=== PATIENT | female | born 1950 | race African-American/Black ===

== ENCOUNTER 2019-10-18 08:59 | Observation (INO) | payer MEDICARE ==
[2019-10-16 12:26] LABS: BASOPHILS % 0.6 % (0.0-1.0); EOSINOPHILS # (AUTO) 0.2 (0.0-0.4); EOSINOPHILS % 3.1 % (0.0-6.0); HEMATOCRIT 33.3 % (34.2-44.1); HEMOGLOBIN 11.1 g/dL (12.0-16.0); LYMPHOCYTES # (AUTO) 1.8 (1.0-3.2); MEAN CORPUSCULAR HEMOGLOBIN 30.8 pg (28-32); MEAN CORPUSCULAR HGB CONC 33.3 g/dL (31-35); MEAN CORPUSCULAR VOLUME 92.5 fL (81-99); MONOCYTES # (AUTO) 0.5 (0.2-0.8); MONOCYTES % 6.4 % (4.4-11.3); NEUTROPHILS # (AUTO) 4.5 (2.1-6.9); NEUTROPHILS % 64.3 % (38.7-80.0); PLATELET COUNT 259 x10e3/uL (140-360); RED CELL DISTRIBUTION WIDTH 12.8 % (11.7-14.4)
[2019-10-16 12:56] LABS: ALANINE AMINOTRANSFERASE 8 IU/L (0-55); ALBUMIN 3.2 g/dL (3.5-5.0); ALKALINE PHOSPHATASE 63 IU/L (40-150); ANION GAP 13.6 mmol/L (8-16); BLOOD UREA NITROGEN 14 mg/dL (7-26); BUN/CREATININE RATIO 15 (6-25); CALCIUM 9.1 mg/dL (8.4-10.2); CARBON DIOXIDE 30 mmol/L (22-29); CHLORIDE 101 mmol/L (98-107); CREATININE, SERUM 0.94 mg/dL (0.57-1.11); EST GLOMERULAR FILTRATION RATE > 60 ML/MIN (60-); GLUCOSE 104 mg/dL (74-118); POTASSIUM 3.6 mmol/L (3.5-5.1); SODIUM 141 mmol/L (136-145)
--- NOTE | 2019-10-16 13:43 | Diagnostic Imaging Report ---
EXAMINATION: CHEST 2 VIEWS INDICATION: ^PREOP ^[id number] ^1312 COMPARISON: None FINDINGS: PA and lateral views TUBES and LINES: None. LUNGS: Lungs are well inflated. Lungs are clear. There is no evidence of pneumonia or pulmonary edema. PLEURA: No pleural effusion or pneumothorax. HEART AND MEDIASTINUM: The cardiomediastinal silhouette is unremarkable. BONES AND SOFT TISSUES: No acute osseous lesion. Soft tissues are unremarkable. UPPER ABDOMEN: No free air under the diaphragm. IMPRESSION: No acute thoracic radiographic abnormality. Signed by: Seven Florez MD on 10/16/2019 1:40 PM
[~2019-10-18] VITALS: Ht 157.5 cm; Wt 93.9 kg
[~2019-10-18 08:59] MED LIST: ALENDRONATE SOD70 MG PO; FERROUS SULFAT324 MG PO; KLOR-CON 1010 MEQ PO; LISINOPRIL-HCT1 EAC2 PO; METOPROLOL SUCC50 MG PO; PANTOPRAZOLE SO40 MG PO; ULORIC40 MG PO
--- OUTSIDE RECORDS SUMMARY | 2019-10-18 09:01 | XMS REPORT ---
Author Author [facility] Address Unknown Phone Unavailable Care Team Providers Care Debridging Machine Operator Name Role Phone DWAYNE CRUM Unavailable Unavailable Problems This patient has no known problems. Allergies, Adverse Reactions, Alerts This patient has no known allergies or adverse reactions. Medications This patient has no known medications. Results Test Description Test Time Test Comments Text Results Atomic Results Result Comments CHEST 2 VIEWS 2019-10-16 13:40:00 [facility] [address] [place] [address] Patient Name: RADHA CLEVELAND MR #: [id number] : 1950 Age/Sex: 69/F Req #: [id number] Adm Physician: Ordered by: DWAYNE CRUM MD Report #: [id number] Location: OR Room/Bed: Procedure: [id number] DX/CHEST 2 VIEWS Exam Date: 10/16/19 Exam Time: 131 REPORT STATUS: Signed EXAMINATION: CHEST 2 VIEWS INDICATION: PRE OP [id number] COMPARISON: None FINDINGS: PA and lateral views TUBES and LINES: None. LUNGS: Lungs are well inflated. Lungs are clear. There is no evidence of pneumonia or pulmonary edema. PLEURA: No pleural effusion or pneumothorax. HEART AND MEDIASTINUM: The cardiomediastinal silhouette is unremarkable. BONES AND SOFT TISSUES: No acute osseous lesion. Soft tissues are unremarkable. UPPER ABDOMEN: No free air under the diaphragm. IMPRESSION: No acute thoracic radiographic abnormality. Signed by: Veronica Flowers MD on 10/16/2019 1:40 PM Dictated By: VERONICA FLOWERS MD 1340 Transcribed By: SOLA on 10/16/19 1340 COPY TO: DWAYNE CRUM MD
[2019-10-18] MEDS ORDERED: LEVOFLOXACIN 250MG/D5W 50ML 50 ML ONE (09:17)
[2019-10-18] MEDS ORDERED: B&O 60MG R/S 60 MG SUPP PR ONE (09:26)
[2019-10-18] MEDS ORDERED: IOPAMIDOL 300MG/ML 50ML INFUS..BTL IV ONE (09:26)
[2019-10-18 12:17] LABS: BASOPHILS % 0.5 % (0.0-1.0); EOSINOPHILS # (AUTO) 0.2 (0.0-0.4); EOSINOPHILS % 2.5 % (0.0-6.0); HEMATOCRIT 33.9 % (34.2-44.1); HEMOGLOBIN 11.2 g/dL (12.0-16.0); LYMPHOCYTES # (AUTO) 1.7 (1.0-3.2); LYMPHOCYTES % 26.4 % (18.0-39.1); MEAN CORPUSCULAR HEMOGLOBIN 30.5 pg (28-32); MEAN CORPUSCULAR VOLUME 92.4 fL (81-99); MONOCYTES # (AUTO) 0.4 (0.2-0.8); MONOCYTES % 5.6 % (4.4-11.3); NEUTROPHILS # (AUTO) 4.1 (2.1-6.9); NEUTROPHILS % 64.7 % (38.7-80.0); PLATELET COUNT 208 x10e3/uL (140-360); RED BLOOD COUNT 3.67 x10e6/uL (3.6-5.1); RED CELL DISTRIBUTION WIDTH 12.8 % (11.7-14.4)
[2019-10-18 12:34] LABS: ANION GAP 14.3 mmol/L (8-16); BLOOD UREA NITROGEN 10 mg/dL (7-26); BUN/CREATININE RATIO 12 (6-25); CALCIUM 8.9 mg/dL (8.4-10.2); CARBON DIOXIDE 29 mmol/L (22-29); CHLORIDE 101 mmol/L (98-107); CREATININE, SERUM 0.86 mg/dL (0.57-1.11); EST GLOMERULAR FILTRATION RATE > 60 ML/MIN (60-); GLUCOSE 104 mg/dL (74-118); POTASSIUM 3.3 mmol/L (3.5-5.1); SODIUM 141 mmol/L (136-145)
[2019-10-18 12:54] VITALS: BP 132/61
[2019-10-18] MEDS ORDERED: SODIUM CHLORIDE 0.9% 1000ML 1,000 ML IV SCH (13:00)
--- NOTE | 2019-10-18 13:00 | NUR ---
PT RECEIVED FROM PACU. AAOX4. PT IS WAITING FOR CARDIAC CLEARANCE PER THE TRANSFER REPORT. LEVAQUIN ONE TIME DOSE GIVEN AT PACU PER THE RN. PAGED DR. WYNNE AND DR. Desi OLIVERA REGARDING PT ARRIVAL TO THE UNIT. EDUCATED PT ABOUT FALL PRECAUTIONS. CALL LIGHT WITH IN EASY REACH. INSTRUCTED PT TO USE CALL LIGHT FOR ALL THE NEEDS. PT VERBALIZED UNDERSTANDING. BED IS LOW AND LOCKED. SIDE RAILS X2. BED ALARM IS ON. PT DENIES NEEDS AT THIS TIME.
--- NOTE | 2019-10-18 13:45 | NUR ---
PAGED DR. CRUM REGARDING PT NPO STATUS. WAITING FOR THE RESPONSE FORM THE
[2019-10-18 14:00] VITALS: BP 132/61
--- NOTE | 2019-10-18 14:47 | NUR ---
CARDIAC DIET , NO PROCEDURE TODAY PER DR. CRUM.
[2019-10-18 15:16] VITALS: BP 146/69
--- NOTE | 2019-10-18 17:00 | NUR ---
WALKING ROUNDS MADE. PER THE PT, HER DAUGHTER WILL MECHANICAL EQUIPMENT SALES ENGINEER THE PT ONLY AFTER 7 PM. BUSINESS DEVELOPMENT AWARE.
--- NOTE | 2019-10-18 17:30 | NUR ---
PT PULLED OUT THE IV BY HERSELF. PT IS NON COMPLIANT WITH FALL PRECAUTIONS. DENIES NEEDS AT THIS TIME
--- NOTE | 2019-10-18 17:31 | NUR ---
PT PULLED OUT THE IV. TIP INTACT. DRESSING APPLIED. PT DENIED FURTHER NEEDS.
--- NOTE | 2019-10-18 18:00 | NUR ---
WALKING ROUNDS MADE. PT IS WAITING FOR THE DAUGHTER TO PICK HER. DENIES NEEDS AT THIS TIME.
--- NOTE | 2019-10-18 19:00 | NUR ---
BEDSIDE SHIFT REPORT GIVEN TO THE GRADES 7 AND 8 VISITING TEACHER RN. PT DENIED FURTHER NEEDS.
--- NOTE | 2019-10-18 22:31 | Consultation ---
DATE OF CONSULTATION: 10/18/2019 Cardiology Consult HISTORY OF PRESENT ILLNESS: Janel De Los Santos is a 69-year-old female with primary history of kidney cancer and post left partial nephrectomy in 2010, history of hypertension, hyperlipidemia, CAD and HI in 2013, only medical management was done, gout arthritis, also history of intermittent urinary tract infection, admitted complaining of hematuria that has been going on and off or intermittently since she had urinary tract infection sometime last year. The patient is now admitted for possible cystoscopy. PAST MEDICAL HISTORY: Hypertension, hypercholesterolemia, hyperlipidemia, HI in 2013, CAD, gout, GERD, obesity, anemia, COPD, kidney cancer, post partial left nephrectomy in 2010. SURGICAL HISTORY: Cholecystectomy, hysterectomy. FAMILY HISTORY: No history of bladder or kidney problems in the family. SOCIAL HISTORY: No alcohol or drug use. CURRENT MEDICATIONS: She is takin. Hydrochlorothiazide. 2. Lisinopril. 3. Metoprolol. 4. Pantoprazole. 5. Klor-Con or potassium chloride. 6. Ferrous sulfate. 7. Febuxostat. 8. Alendronic acid. PHYSICAL EXAMINATION: VITAL SIGNS: Includes temperature 98.0, pulse of 76, respirations 18, blood pressure is 132/61, pulse oximetry is 99% on 2 L nasal cannula. GENERAL: The patient is well-developed, well-nourished, no acute respiratory distress. SKIN: Normal in appearance, texture, and temperature is warm and dry. HEENT: The patient cranium is normocephalic and atraumatic. Her pupils are equally round and reactive to light and accommodation. NECK: Supple. Full range of motion. No cervical lymphadenopathy. No thyromegaly. RESPIRATORY: Normal respiratory effort. LUNGS: Clear to auscultation bilaterally. CARDIOVASCULAR: S1 and S2 audible. Regular rate and rhythm. GI: Soft, nondistended, nontender. Bowel sounds are present. EXTREMITIES: No cyanosis, no clubbing, no edema. NEUROLOGIC: Motor and sensory examination of the upper and lower extremities are normal. Reflexes are normal and symmetrical bilaterally. ASSESSMENT AND PLAN: The patient is a 69-year-old female, admitted for hematuria. The patient's EKG, chest x-ray, and hemodynamics were reviewed. The patient is stable with no chest pain or no dyspnea. EKGs unremarkable. The patient is cleared for surgery or cystoscopy, procedure from cardiac standpoint. Thank you for this consultation. Dictated by Larissa Aguirre, POT PUSHER MD RENU Cm/HIMANSHU /[id number]
--- NOTE | 2019-10-18 23:06 | History and Physical ---
CHIEF COMPLAINT: Chronic atypical chest pain. HISTORY OF PRESENT ILLNESS: The patient is a 69-year-old female with off and on epigastric pain, chest pain area. Apparently, she was supposed to have a cystoscopy for hematuria today and while she was evaluated by the anesthesiologist, she was stating that she was having some chest pain with nonspecific EKG changes. The patient stating that chest pain is off and on, very nonspecific. She has seen her almond blancher operator previously, but did not get an official cardiac clearance. The patient's cystoscopy procedure is stopped and the patient placed on observation for evaluation. The patient did not want any procedures or cardiac clearance in the hospital at this time. She rather go home and see her almond blancher operator or a referral from her PCP for seeing almond blancher operator as an outpatient. Today is Monday and she does not want to wait for workup on Monday. The patient is otherwise stable. She did not have any chest pain now. No abdominal pain. No diarrhea or constipation. No shortness of breath. No headaches. No nausea or vomiting. PAST MEDICAL HISTORY: 1. Left renal partial nephrectomy, secondary to renal-cell carcinoma. 2. Hematuria. 3. Hypertension. 4. Dyslipidemia. 5. Osteoporosis. 6. Gout. 7. Reflux history. PAST SURGICAL HISTORY: As above. SOCIAL HISTORY: The patient does not smoke or use alcohol. No regular drugs. ALLERGIES: AMOXICILLIN, CLAVULANIC ACID, CODEINE, IBUPROFEN, NAPROXEN, AND PROMETHAZINE. HOME MEDICATIONS: Alendronate, Uloric, ferrous sulfate, lisinopril, HCTZ, metoprolol succinate, Protonix, and potassium. PHYSICAL EXAMINATION: VITAL SIGNS: Temperature is 97, blood pressure 146/69, pulse rate is 85, and respirations 18. GENERAL: The patient is not in acute distress. HEENT: Normocephalic and atraumatic. Sclerae anicteric. NECK: Supple grossly. PULMONARY: Clear. CARDIOVASCULAR: Regular rate and rhythm. ABDOMEN: Soft, obese. EXTREMITIES: No cyanosis or edema. NEUROLOGIC: No gross focal deficit. LABORATORY DATA: Sodium is 141, potassium 3.6, chloride 101, bicarb 30. BUN 14, creatinine 0.9, glucose 104. Liver enzyme unremarkable. WBC was 7, hemoglobin 11, hematocrit 33, platelets 259. Chest x-ray otherwise unremarkable. IMPRESSION: Atypical chest discomfort/epigastric pain, could be multifactorial. Since the patient has an elective cystoscopy at this time, the procedure was canceled by anesthesiologist. Discussed with the patient at length. The patient would rather go home and have a referral to her almond blancher operator for cardiac workup and clearance for her procedures. Discussed with the patient that once she had her cardiac clearance, the patient should follow up with Dr. Kenton Vega for a procedure as planned. The patient is otherwise stable. Resume home medication and discharge home today. MD MANUEL Walker/VERONICAL /[id number]
--- NOTE | 2019-10-19 04:42 | Discharge Summary ---
Please review my history and physical where I dictated a plan on this patient care. The patient will go home today. Resume home medication. Follow up with PCP or referred percussion welding machine operator either Dr. Trujillo or Dr. Jose De Jesus Oquendo for outpatient cardiac clearance prior to cystoscopy for hematuria. The patient is otherwise stable, discharged home today. Resume home medication. MD MANUEL Walker/HIMANSHU /[id number]
== END 2019-10-18 21:36 | disposition home or self-care (01) ==
LOC: OR 08:59 → PACU V 10:39 → INTOOBSV 10:39 → MED/SURG2 12:34
PROVIDERS: ADMIT Internal Medicine; ATTEND Internal Medicine
DX: R31.9 Hematuria, unspecified (principal); I10 Essential (primary) hypertension; M81.0 Age-related osteoporosis without current pathological fracture; M10.9 Gout, unspecified; Z85.53 Personal history of malignant neoplasm of renal pelvis; M19.90 Unspecified osteoarthritis, unspecified site; E78.5 Hyperlipidemia, unspecified; J44.9 Chronic obstructive pulmonary disease, unspecified; Z90.5 Acquired absence of kidney; I25.10 Atherosclerotic heart disease of native coronary artery without angina pectoris; I25.2 Old myocardial infarction; E66.9 Obesity, unspecified; Z68.37 Body mass index [BMI] 37.0-37.9, adult; N28.1 Cyst of kidney, acquired
CPT/HCPCS: 36415 ×2; 71046; 80048; 80053; 82948; 85025 ×2; 93005; G0378; J1956; J7030

== ENCOUNTER → 2020-07-17 | Day surgery (SDC) | payer MEDICARE ==
[2020-07-14 12:14] LABS: BASOPHILS % 0.5 % (0.0-1.0); EOSINOPHILS # (AUTO) 0.2 (0.0-0.4); EOSINOPHILS % 3.7 % (0.0-6.0); HEMATOCRIT 38.5 % (34.2-44.1); HEMOGLOBIN 12.4 g/dL (12.0-16.0); LYMPHOCYTES # (AUTO) 1.7 (1.0-3.2); LYMPHOCYTES % 27.9 % (18.0-39.1); MEAN CORPUSCULAR HEMOGLOBIN 29.4 pg (28-32); MEAN CORPUSCULAR HGB CONC 32.2 g/dL (31-35); MEAN CORPUSCULAR VOLUME 91.2 fL (81-99); MONOCYTES # (AUTO) 0.3 (0.2-0.8); MONOCYTES % 5.4 % (4.4-11.3); NEUTROPHILS # (AUTO) 3.7 (2.1-6.9); NEUTROPHILS % 62.2 % (38.7-80.0); PLATELET COUNT 211 x10e3/uL (140-360); RED BLOOD COUNT 4.22 x10e6/uL (3.6-5.1); RED CELL DISTRIBUTION WIDTH 13.2 % (11.7-14.4)
[2020-07-14 13:00] LABS: ANION GAP 13.3 mmol/L (8-16); BLOOD UREA NITROGEN 15 mg/dL (7-26); BUN/CREATININE RATIO 16 (6-25); CALCIUM 9.3 mg/dL (8.4-10.2); CARBON DIOXIDE 27 mmol/L (22-29); CHLORIDE 102 mmol/L (98-107); CREATININE, SERUM 0.94 mg/dL (0.57-1.11); EST GLOMERULAR FILTRATION RATE > 60 ML/MIN (60-); GLUCOSE 89 mg/dL (74-118); POTASSIUM 3.3 mmol/L (3.5-5.1); SODIUM 139 mmol/L (136-145)
--- NOTE | 2020-07-14 13:03 | Diagnostic Imaging Report ---
X-ray chest 2 views History: Preop Comparison: 10/16/2019 Findings: Central airways: Unremarkable Cardiac silhouette: Unremarkable Mediastinal silhouettes: Unremarkable. Slightly prominent aorta. Pleura: No pleural effusion, pneumothorax or thickening Diaphragms: Unremarkable Lungs: No focal lung disease Skeletal structures: Unremarkable Extrathoracic soft tissues: Unremarkable Impression: No acute cardiopulmonary disease Signed by: Alex Baxter MD on 07/14/2020 12:59 PM
[~2020-07-17] MED LIST changes: +ALLOPURINOL100 MG PO; +B&O 60MG R/S 60 MG SUPP PR ONE; +DEXAMETHASONE SOD PHOS INJ 4 MG/ML VIAL ONE; +GENTAMICIN 80MG/NS 100 ML 200 ML IV ONE; +IOPAMIDOL 300MG/ML 50ML INFUS..BTL IV ONE; +LIDOCAINE HCL 2% LOCAL INJ 5 ML SDV VIAL INJ ONE; +ONDANSETRON HCL INJ 2MG/ML 2ML 2 MG/ML VIAL ONE; +PROPOFOL IV EMULSION 10 MG/ML 20 ML VIAL ONE; +SEVOFLURANE INHAL SOLN 250 ML PEN BTL ONE
[2020-07-17 13:05] VITALS: BP 127/60
--- NOTE | 2020-07-18 00:30 | Operative Report ---
DATE OF PROCEDURE: 07/17/2020 SURGEON: Kenton Vega MD PREOPERATIVE DIAGNOSES: 1. Urinary tract infections. 2. Hematuria. POSTOPERATIVE DIAGNOSES: 1. Urinary tract infections. 2. Hematuria. 3. Grade 2 cystocele. 4. Grade 2 rectocele. 5. Urethral hypermobility. 6. Urethral caruncle. 7. Atrophic (senile) vaginitis. OPERATIONS PERFORMED: 1. Cystourethroscopy with bilateral ureteral catheterization and retrograde ureteropyelography. 2. Interpretation of retrograde ureteropyelography. No radiologist present. 3. Supervision of fluoroscopy. No radiologist present. 4. Pelvic examination under anesthesia. ANESTHESIA: General. COMPLICATIONS: None. CLINICAL SUMMARY: Janel De Los Santos is a 69-year-old woman with long urological history. The patient is status post left partial nephrectomy performed at [facility]. The patient has the above preoperative diagnoses. She is brought for the above procedure. She is aware of the risks of bleeding, infection, injury to adjacent structures, need for additional procedures and elected to proceed. OPERATIVE PROCEDURE IN DETAIL: Informed consent was verified. Janel De Los Santos was properly identified, taken to the operating room and placed on the lithotripsy table in supine position. Anesthesia was uneventfully begun. The patient was then carefully and gently repositioned in dorsal lithotomy position with all pressure points well padded. Her genitalia were prepared and draped in usual sterile fashion. The cystoscope sheath with obturator in place was atraumatically inserted into the patient's urethra and the bladder was drained. Panendoscopy of urinary bladder revealed no suspicious mucosal lesions, no tumors, no stones, no diverticula. Normally positioned and consecutive ureteral orifices were identified. Ureteral catheter was used to cannulate each ureter and retrograde ureteropyelogram was performed. INTERPRETATION OF RETROGRADE URETEROPYELOGRAPHY: Contrast was instilled in a retrograde fashion bilaterally. There were no tumors, no stones, no diverticula. Unobstructed drainage was observed bilaterally and fluoroscopically. The patient's bladder was drained. The ureteroscope was withdrawn. Pelvic examination under anesthesia revealed a grade 2 cystocele, grade 2 rectocele. There was urethral hypermobility. There was urethral caruncle and there was atrophic (senile) vaginitis. The patient was then uneventfully reversed from anesthesia and taken to recovery room in stable condition. There were no complications to the procedure. She tolerated the procedure well. Estimated blood loss was minimal. Explicit postop instructions were given. We will plan to follow with the patient up in the office. Kenton Vega MD OH/MODL /[id number]
== END | disposition home or self-care (01) ==
LOC: OR 09:28
PROVIDERS: ATTEND Urology
DX: N39.0 Urinary tract infection, site not specified (principal); I12.9 Hypertensive chronic kidney disease with stage 1 through stage 4 chronic kidney disease, or unspecified chronic kidney disease; N18.9 Chronic kidney disease, unspecified; N81.10 Cystocele, unspecified; N81.6 Rectocele; N36.41 Hypermobility of urethra; N36.2 Urethral caruncle; N95.2 Postmenopausal atrophic vaginitis; Z90.5 Acquired absence of kidney; I25.2 Old myocardial infarction; M10.9 Gout, unspecified; E66.9 Obesity, unspecified; J44.9 Chronic obstructive pulmonary disease, unspecified; I25.10 Atherosclerotic heart disease of native coronary artery without angina pectoris; Z88.6 Allergy status to analgesic agent; Z88.0 Allergy status to penicillin; Z88.8 Allergy status to other drugs, medicaments and biological substances; Z01.810 Encounter for preprocedural cardiovascular examination; Z01.812 Encounter for preprocedural laboratory examination; Z01.818 Encounter for other preprocedural examination; Z11.59 Encounter for screening for other viral diseases
CPT/HCPCS: 36415; 52005; 71046; 74420; 80048; 85025; 93005; C1758; J1100; J1580; J2001; J2405; J2704; Q9967; U0002